=== PATIENT | female | born 1945 | race Caucasian/White ===

== ENCOUNTER 2021-11-18 15:51 | Emergency (ER) | payer MEDICARE, MEDICAID ==
[~2021-11-18] VITALS: Ht 165.1 cm; Wt 77.8 kg
[2021-11-18] MEDS ORDERED: ALEN35TA41 PO (16:05)
[2021-11-18] MEDS ORDERED: LORA10TA7 PO (16:11)
[2021-11-18] MEDS ORDERED: NAPR-1025 PO (16:11)
[2021-11-18] MEDS ORDERED: CHOL-35 PO (16:11)
[2021-11-18] MEDS ORDERED: LORA-1000 PO (16:11)
[2021-11-18] MEDS ORDERED: METF-911 PO (16:11)
[2021-11-18] MEDS ORDERED: OMEP20 PO (16:11)
[2021-11-18] MEDS ORDERED: TRI2515C TP (16:11)
[2021-11-18] MEDS ORDERED: ASPI-1450 PO (16:11)
[2021-11-18] MEDS ORDERED: FLUT16H NASAL (16:11)
[2021-11-18] MEDS ORDERED: ATOR40TA28 PO (16:11)
[2021-11-18] MEDS ORDERED: LOSA-30 PO (16:11)
[2021-11-18] MEDS ORDERED: ALEN70TA65 PO (16:18)
[2021-11-18] MEDS ORDERED: IPRATROPIUM BROMIDE 0.5 MG/2.5 ML NEB SOLUTION NEB ONE (16:30)
[2021-11-18] MEDS ORDERED: ALBUTEROL SULFATE 2.5 MG/0.5 ML NEB SOLUTION NEB ONE (16:30)
[2021-11-18 16:33] LABS: COVID AG,FIA SOURCE NASOPHARYNGEAL
[2021-11-18 16:43] LABS: BASOPHILS % (AUTO) 0.4 % (0.0-2.0); EOSINOPHILS % (AUTO) 0.1 % (1.0-6.0); HEMATOCRIT 42.6 % (36-46); LYMPHOCYTES % (AUTO) 19.1 % (22.0-44.0); MEAN CORPUSCULAR HEMOGLOBIN 27.7 pg (26.0-34.0); MEAN CORPUSCULAR HGB CONC 32.8 G/dL (31.0-37.0); MEAN CORPUSCULAR VOLUME 84 fL (80-100); MONOCYTES # (AUTO) 0.9 K/uL (0.1-1.0); MONOCYTES % (AUTO) 8.6 % (2.0-9.0); NEUTROPHILS # (AUTO) 7.4 K/uL (1.8-7.7); NEUTROPHILS % (AUTO) 71.8 % (40.0-70.0); PLATELET COUNT (AUTO) 284 K/uL (150-450); RED BLOOD CELL COUNT(AUTO) 5.06 MIL/uL (4.00-5.20); RED CELL DISTRIBUTION WIDTH 14.4 % (11.5-14.5)
[2021-11-18 16:45] LABS: ANION GAP 9 mmol/L (8-16); CALCIUM, TOTAL 9.2 mg/dL (8.8-10.5); CARBON DIOXIDE 29 mmol/L (22-29); CHLORIDE 107 mmol/L (98-107); CREATININE 0.85 mg/dL (0.60-1.30); GLUCOSE,RANDOM 94 mg/dL (70-110); POTASSIUM 3.6 mmol/L (3.5-5.1); SODIUM SERUM 145 mmol/L (136-145); UREA NITROGEN, BLOOD 25 mg/dL (7-18)
[2021-11-18 16:54] LABS: GLOMERULAR FILTR. RATE CALC > 60 mL/min (>60)
[2021-11-18 17:14] VITALS: BP 139/55
[2021-11-18] MEDS ORDERED: ALBUTEROL SULFATE HFA 90 MCG/PUFF 8 GM INHALER IH ONE (18:00)
== END 2021-11-18 18:36 | disposition home or self-care (01) ==
LOC: EMS 15:53
DX: J40 Bronchitis, not specified as acute or chronic (principal); R07.89 Other chest pain; I25.10 Atherosclerotic heart disease of native coronary artery without angina pectoris; E11.9 Type 2 diabetes mellitus without complications; K21.9 Gastro-esophageal reflux disease without esophagitis; I10 Essential (primary) hypertension; Z20.822 Contact with and (suspected) exposure to COVID-19; Z79.84 Long term (current) use of oral hypoglycemic drugs
CPT/HCPCS: 71045; 80048; 84484; 85025; 93005; 94640; 99285; J3535; 36415-L1; 36415-TC; J7613